=== PATIENT | female | born 1985 | race Two or more races ===

== ENCOUNTER 2023-12-30 11:20 | Emergency (ER) | payer OTHER ==
[~2023-12-30] VITALS: Ht 154.9 cm; Wt 67.9 kg
[2023-12-30 12:55] VITALS: BP 127/73; PULSE 88; RESP 16; TEMP 98; O2SAT 99
[2023-12-30] MEDS ORDERED: BACDST PO (13:01)
[2023-12-30] MEDS ORDERED: PRED20TA2 PO (13:01)
== END 2023-12-30 13:11 | disposition home or self-care (01) ==
LOC: ER 11:20
DX: M79.10 Myalgia, unspecified site (principal); T36.0X5A Adverse effect of penicillins, initial encounter; T36.1X5A Adverse effect of cephalosporins and other beta-lactam antibiotics, initial encounter; J32.9 Chronic sinusitis, unspecified; F41.9 Anxiety disorder, unspecified; Z88.8 Allergy status to other drugs, medicaments and biological substances; Z79.899 Other long term (current) drug therapy; Y92.89 Other specified places as the place of occurrence of the external cause